=== PATIENT | female | born 1960 | race Caucasian/White ===

== ENCOUNTER 2017-06-18 12:10 | Outpatient (CLI) | payer MEDICARE, MEDICAID ==
[2017-06-18] MEDS ORDERED: SODIUM CHLORIDE IVPB SCH (13:00)
[2017-06-18] MEDS ORDERED: ADMIXTURE FEE IVPB SCH (13:00)
[2017-06-18] MEDS ORDERED: IRON DEXTRAN IVPB SCH (13:00)
[2017-06-18] MEDS ORDERED: Sodium Chloride 0.9% 20 ML ONE (13:22)
[2017-06-18 14:05] VITALS: BP 175/83; TEMP 98.4
== END 2017-06-18 17:35 | disposition home or self-care (01) ==
LOC: ONC/OP 12:10
PROVIDERS: ATTEND Internal Medicine Hematology & Oncology
DX: D50.8 Other iron deficiency anemias (principal)
CPT/HCPCS: 96365; 96366; A4216; J1750; J7050

== ENCOUNTER 2017-08-21 20:23 | Inpatient (IN) | payer MEDICARE, MEDICAID ==
[2017-08-21] MEDS ORDERED: Morphine 4 MG/ML VIAL ONE (21:33)
[2017-08-21] MEDS ORDERED: Ondansetron ODT 8 MG TAB ONE (21:41)
[2017-08-21] MEDS ORDERED: HYDROcodone/Acetaminophen 7.5/325 mg Tablet PO PRN (22:24)
[2017-08-21] MEDS ORDERED: Ondansetron ODT 4 MG TAB PO PRN (22:24)
[2017-08-21] MEDS ORDERED: HYDROcodone/Acetaminophen 5/325 mg Tablet PO PRN (22:24)
--- NOTE | 2017-08-21 23:29 | HP ---
CHIEF COMPLAINT: Ascites. HISTORY OF PRESENT ILLNESS: The patient is a 56-year-old female who was transferred here secondary t o abdominal distention and abdominal pain. The patient states that this started about 5 days ago and has gotten worse. She has noted that her abdominal girth has increased and she has had swelling in her lower extremities as well as some in her upper extremities. The patient denied any fevers or chi lls. She also denied any recent travels or any other symptoms. She denied any nausea, vomiting, lorna rrhea. She does have constipation, which has been intermittent and has been for about a month. She states that she was taking [id number] stool softener and initially attributed her constipation to iron. PAST MEDICAL HISTORY: Significant for rheumatoid arthritis and fibromyalgia. PAST SURGICAL HISTORY: The patient has had a prior total abdominal hysterectomy as well as 2 coronar y artery stents placed in 2013 and a prior . FAMILY HISTORY: The patient notes that her mom had recently and has had a history of bladder an d colon cancer. Her dad of lung cancer and he was a heavy smoker. SOCIAL HISTORY: Negative for tobacco or alcohol use. REVIEW OF SYSTEMS: Please see HPI. Rest of 14-point review of system is negative. LABORATORY AND X-RAY DATA: The patient's lab from transferring facility showed a sodium of 129, pota ssium 3.6, chloride 91, bicarbonate 26, BUN 10, creatinine 0.8, AST 31, ALT 16, total protein 8.8. C BC: White count was 9.3, H&H 13 and 40 with a platelet of 509. The patient's UA was unremarkable wi th nitrite and leukocyte esterase negative. BNP was 26. KUB showed nonspecific gas-bowel pattern. Preliminary CAT scan had shown some mildly distended colon air markings. PHYSICAL EXAMINATION: VITAL SIGNS: Blood pressure 161/94, pulse 106, respirations 18. The patient is satting 97% on room air, T-max is 98.3. GENERAL: The patient is awake, alert, oriented x3, in no acute distress. HEENT: Pupils equal, round, and reactive to light and accommodation. Extraocular muscles intact. T Ms are clear. Normal throat. NECK: No JVD or lymphadenopathy. HEART: Regular rate and rhythm. LUNGS: Clear to auscultation bilaterally. ABDOMEN: Positive bowel sounds. Soft, protuberant with distention and a positive fluid wave. EXTREMITIES: Positive 2 to 3+ edema in the lower extremities. NEUROLOGIC: Cranial nerves II-XII are grossly intact. Muscle strength is 5/5. No focal deficits no angelica. PSYCHIATRIC: The patient is cooperative and answering questions appropriately. ASSESSMENT AND PLAN: 1. Ascites, currently unknown cause. Certainly, cancer is in the differential. Diagnostic paracent esis is being performed in the ER with fluid being sent for cell count and cytology. Therapeutic tap to follow with IR in the next day or so. We will go ahead and obtain echocardiogram as well to look at heart function, as the patient does have 2 cardiac stents in the cardiac history. CEA and CA-125 have been ordered as cancer markers. 2. Rheumatoid arthritis. Continue with symptom management. CODE STATUS: The patient is a FULL CODE.
[2017-08-22 00:18] VITALS: BMI 36.8
[2017-08-22] MEDS: HYDROcodone/Acetaminophen 10/325 mg Tablet PO PRN ×4 (00:36→22:11)
[2017-08-22 01:22] LABS: BF Color Yellow; Clarity Hazy (Clear); RBC Background Count 0.001; Tube # 1
[2017-08-22 01:23] LABS: BF RBC Count - Manual 1136 /cumm; WBC/NonHematic-Auto 502 /cumm
[2017-08-22 03:58] LABS: BF Segmented Neutrophils 1 %; Cell Count Non Hematic 10 %; Lymphocytes 89 %
[2017-08-22 04:42] LABS: #Eosinphils 0.2 thou/uL (0.0-0.7); #Lymphocytes 2.6 thou/uL (1.20-3.40); #Monocytes 0.8 thou/uL (0.11-0.59); #Neutrophils 3.5 thou/uL (1.40-6.50); %Basophils 0.6 % (0.0-1.0); %Eosinophils 3.3 % (0.0-10.0); %Lymphocytes 35.9 % (21.0-51.0); %Monocytes 11.1 % (0.0-10.0); %Neutrophils 49.1 % (42.0-75.0); Hemoglobin 11.3 g/dL (12.0-16.0); Mean Corpuscular HGB CONC 31.4 g/dL (32.0-36.0); Mean Corpuscular Hemoglobin 24.2 pg (27.0-31.0); Mean Corpuscular Volume 77.2 fl (81.0-99.0); Mean Platelet Volume 8.1 fL (7.4-10.4); Platelet Count 487 thou/uL (130-400); RBC Distribution Width 17.6 % (11.5-14.5); Red Blood Cell (RBC) Count 4.67 mill/uL (4.20-5.40); White Blood Cell (WBC) Count 7.2 thou/uL (4.8-10.8)
[2017-08-22 04:56] LABS: Anion Gap 9 mmol/L (10-20); BUN (Urea Nitrogen) 8 mg/dL (9.8-20.1); Calc. Creatinine Clearance 143 mL/min (70-130); Calcium 8.9 mg/dL (7.8-10.44); Carbon Dioxide 28 mmol/L (22-29); Chloride 97 mmol/L (98-107); Estimated GFR-MDRD 82; Glucose 155 mg/dL (70-105); Potassium 3.7 mmol/L (3.5-5.1); Sodium 130 mmol/L (136-145)
[2017-08-22] MEDS: Enoxaparin Sodium 40 MG/0.4 ML SYRINGE SC SCH (10:17)
[2017-08-22] MEDS: Meloxicam 15 MG TAB PO SCH (10:17)
[2017-08-22] MEDS: Docusate 100 MG CAP PO SCH ×2 (10:17→20:27)
[2017-08-22] MEDS: Famotidine 20 MG TAB PO SCH ×2 (10:18→20:27)
[2017-08-22] MEDS: Multivit, Therapeutic 1 TAB PO SCH (10:18)
--- NOTE | 2017-08-22 10:30 | PDOC.PN ---
- Subjective Encounter Start Date: 08/22/17 Encounter Start Time: 10:28 Subjective: ascites, wants "it all out" - Objective Resuscitation Status: Resuscitation Status FULL:Full Resuscitation MAR Reviewed: Yes Vital Signs & Weight: Vital Signs (12 hours) Temp Pulse Resp BP BP Pulse Ox 08/22/17 08:29 98 F 102 H 20 157/93 H 98 08/22/17 03:48 98.1 F 99 16 137/79 92 L 08/21/17 23:50 98.3 F 110 H 20 93 L 08/21/17 23:45 98.3 F 110 H 20 136/87 93 L Weight Weight 235 lb 8 oz Result Diagrams: 08/22/17 04:26 08/22/17 04:26 Phys Exam - Physical Examination Neck: no JVD Respiratory: clear to auscultation bilateral Cardiovascular: RRR, no significant murmur Gastrointestinal: soft, non-tender, positive bowel sounds distended, pos fluid wave Musculoskeletal: edema present Dx/Plan (1) Ascites Code(s): R18.8 - OTHER ASCITES Status: Acute (2) Rheumatoid arteritis Code(s): I00 - RHEUMATIC FEVER WITHOUT HEART INVOLVEMENT Status: Acute (3) Hyponatremia Code(s): E87.1 - HYPO-OSMOLALITY AND HYPONATREMIA Status: Acute (4) CAD (coronary artery disease) Code(s): I25.10 - ATHSCL HEART DISEASE OF [place] CORONARY ARTERY W/O ANG PCTRS Status: Acute Qualifiers: Coronary Disease-Associated Artery/Lesion type: [place] artery [place] vs. transplanted heart: [place] heart Associated angina: without angina Qualified Code(s): I25.10 - Atherosclerotic heart disease of [place] coronary artery without angina pectoris (5) High serum carcinoembryonic antigen (CEA) Code(s): R79.89 - OTHER SPECIFIED ABNORMAL FINDINGS OF BLOOD CHEMISTRY Status : Acute - Plan on DMAs humira, viibryd -: obtain hepatic profile, PT/PTT -: consult oncology, GI -: await path on ascitic fluid * .
[2017-08-22 11:01] LABS: INR-International Normal Ratio 1.1; Prothrombin Time 14.6 SEC (12.0-14.7)
[2017-08-22 11:02] LABS: PTT 37.5 SEC (22.9-36.1)
[2017-08-22 11:11] LABS: ALT (SGPT) 11 U/L (8-55); AST (SGOT) 28 U/L (5-34); Albumin 2.9 g/dL (3.5-5.0); Alkaline Phosphatase 90 U/L (40-150); Bilirubin, Direct 0.2 mg/dL (0.1-0.3); Bilirubin, Total 0.3 mg/dL (0.2-1.2); Protein, Total 7.6 g/dL (6.0-8.3)
[2017-08-22 17:41] LABS: Uric Acid 6.8 mg/dL (2.6-6.0)
--- NOTE | 2017-08-22 18:07 | CON ---
DATE OF CONSULTATION: 08/22/2017 REASON FOR CONSULTATION: Possible malignant ascites. HISTORY OF PRESENT ILLNESS: Ms. Tinoco is a 56-year-old female who over the last 4 days has had increasing abdominal girth with abdominal pain, shortness of breath, and increased weakness. She was seen at the [facility] where she had a CT scan that showed omental caking, mod erate to large ascites with scalloping of the liver surface consistent with pseudomyxoma peritonei. She was transferred to this facility and underwent a therapeutic paracentesis. Cytology is currently pending. The patient has a history of iron deficient anemia and Leiva's esophagitis, rheumatoid a rthritis, and morbid obesity. She was told 5 or 6 months ago that she was anemic. She did see Dr. Zahra qiu and was given IV iron. She did not follow up. She takes Nexium for Leiva's esophagitis. H er last colonoscopy was last year by Dr. Flannery. When she saw Dr. Brito in June, she was instructed to have a GI workup, but again she did not follow up. Patient denies any chest pain. She does have occasional palpitations and shortness of breath. Lab this admission showed a CBC of 7.2 a nd hemoglobin 11.3. Her INR was normal at 1.1. A CEA was performed and was elevated at 1436. PAST MEDICAL HISTORY: 1. Leiva's esophagus. 2. Fibromyalgia. 3. Hypertension. 4. GERD. 5. Rheumatoid arthritis. 6. Type 2 diabetes. 7. Anemia. 8. Hyperlipidemia. 9. Coronary artery disease. 10. Liver disease diagnosed in 1998. PAST SURGICAL HISTORY: 1. Cardiac stent placement in 2013. 2. Total hysterectomy. 3. Tonsillectomy. 4. . ALLERGIES: No known drug allergies. HOME MEDICATIONS: 1. Humira 40 mg subcu. 2. Delmont p.r.n. 3. Mobic 15 mg daily. 4. Zanaflex p.r.n. 5. Viibryd 40 mg daily. FAMILY HISTORY: Father had leukemia, lung cancer. Mother had colon cancer. SOCIAL HISTORY: , former smoker. No alcohol, tobacco or illicit drug use. REVIEW OF SYSTEMS: Constitutional: Positive for fever, chills or night sweats. Eyes: No blurred o r double vision. ENT: No pain, hoarseness, sore throat, or dysphagia. Cardiovascular: No chest pa in, palpitations, syncope. Respiratory: Positive for shortness of breath, dyspnea on exertion. Gas trointestinal: No nausea, vomiting, diarrhea. Positive for abdominal pain and constipation. Genito urinary: No dysuria or hematuria. Musculoskeletal: No joint or back pain. Skin: No rash or pruri tus. Hematologic: Occasional rectal bleeding, no bruising or clotting. Neurologic: No weakness, h eadache, numbness, tingling or seizure activity. Psychiatric: No anxiety or depression. PHYSICAL EXAMINATION: VITAL SIGNS: Temperature is 98, pulse is 102, respiratory rate is 20, BP is 157/93. She is 98% on r oom air. GENERAL: This is an obese female in no acute distress. HEENT: Normocephalic, atraumatic. Pupils equal and reactive to light. NECK: Supple. CARDIOVASCULAR SYSTEM: Regular rate and rhythm. LUNGS: Clear. ABDOMEN: Distended, nontender. Bowel sounds are positive. EXTREMITIES: No clubbing, cyanosis or edema. SKIN: No rash. HEMATOLOGIC: No petechia or purpura. NEUROLOGICAL: Nonfocal. PSYCHIATRIC: The patient is alert and oriented and appropriate. PERTINENT LABORATORY DATA AND X-RAYS: Current WBCs are 7.2, hemoglobin 11.3, hematocrit 36.1, platel et count 487,000, 49% neutrophils, 36% lymphocytes. PT is 14.6, INR 1.1, PTT 37.5. Sodium is 130, p otassium 3.7, chloride 97, CO2 is 28, BUN is 8, creatinine 0.73, calcium is 8.9, total bilirubin 0.3, AST is 28, ALT is 11, alkaline phosphatase is 90. Albumin is 7.6. CEA is 1436. IMPRESSION: Abnormal CT scan with omental caking, moderate to large ascites and liver scalloping sug gestive of pseudomyxoma peritonei. PLAN: The patient has had a paracentesis. We will await final cytology for potential diagnosis and I note the GI has been consulted for their assistance. She does have a history of Leiva esophagus and some questionable GI bleeding. If diagnosis is unable to be made from cytology and GI has no fur ther plans, we will need a surgical consult for a biopsy of one of the areas of omental caking. Thank you for the consult. We will follow her closely.
[2017-08-22] MEDS ORDERED: GoLYTELY 4,000 ml Bottle PO SCH (19:15)
[2017-08-22] MEDS: tiZANidine HCl 4 MG TAB PO SCH (20:26)
--- NOTE | 2017-08-23 03:59 | CON ---
DATE OF CONSULTATION: 08/22/2017 REASON FOR CONSULTATION: New-onset ascites, possible malignant ascites. CONSULTING PHYSICIAN: ____ HISTORY OF PRESENT ILLNESS: Patient is a 56-year-old female with past medical history of rheumatoid arthritis, fibromyalgia, hypertension, GERD, diabetes, hyperlipidemia, coronary artery disease, and f atty liver, presenting with new-onset ascites. She says she was in her usual state of health. Per arthur zarate review, the patient was told approximately 5-6 months ago that she was anemic and told that she has also iron deficiency anemia. She ultimately underwent infusion of IV iron per the Hematology ser vice, but did not follow up after that particular IV infusion. Given her iron deficiency anemia, she was instructed to follow up as an outpatient with the GI service, but again this did not take place. Approximately 1.5 weeks ago, she started having significant increased abdominal distention and abdo alma pain associated with this distention as well as decreased appetite and the sensation of feeling full/bloating. This was also accompanied with increased nausea and vomiting x2 with nonbloody emesi s. She was also complaining of increased constipation approximately 1-1/2 weeks ago and was given Am itiza for correction of her constipation. After taking one dose of the Amitiza, it is when she had t he significant onset of her ascites. Currently states that she has generalized abdominal pain charac terized as pressure, aching type sensation with no clear alleviating or exacerbating factors. Lastly , she also does endorse a history of Leiva's esophagus and has been having complaints of dysphagia characterized as the sensation that food is getting stuck at the level of the sternal notch that has been occurring for the last 2-3 months. She states her last colonoscopy was approximately one year a go with Dr. Flannery with normal findings, but she cannot remember when her last upper endoscopy w as. REVIEW OF SYSTEMS: A 10-point category review of systems was obtained with all responses negative ex cept for the pertinent positives as listed in the HPI. PAST MEDICAL HISTORY: As per HPI. PAST SURGICAL HISTORY: Tonsillectomy, x1, total hysterectomy, and cardiac stent placement in 2013. FAMILY HISTORY: Mother with a history of colon cancer, father also diagnosed with leukemia, and lung cancer. SOCIAL HISTORY: Denies any tobacco, alcohol or illicit drug use. OUTPATIENT MEDICATIONS: Reviewed. ALLERGIES: No known drug allergies. PHYSICAL EXAMINATION: VITAL SIGNS: Temperature 97.8, pulse 96, blood pressure 138/77, respiratory rate 16, satting 100% on room air. GENERAL: The patient is sitting at bedside in no acute distress. Alert and oriented x4. NECK: Supple. No JVD noted. CARDIOVASCULAR: Regular rate and rhythm with no discernible murmurs, gallops or rubs. RESPIRATORY: Clear to auscultation bilaterally with no discernible wheezes or rales. ABDOMEN: Normoactive bowel sounds, soft, tenderness to palpation in all abdominal quadrants. Signif icant abdominal distention with positive shifting dullness. EXTREMITIES: No cyanosis, clubbing or edema. LABORATORY DATA: CBC with the white blood cell count 7.2, hemoglobin 11.3, hematocrit 36.1, platelet s 487. Chemistry with a sodium of 130, potassium 3.7, chloride 97, CO2 of 28, BUN 8, creatinine 0.73 , glucose 155, AST 28, ALT 11, alkaline phosphatase 90, total bilirubin 0.3, albumin 2.9. INR 1.1. Analysis of paracentesis fluid yielded 502 white blood cells with a 1% PMN predominance, total protei n of the ascitic fluid was 4.5, CEA 1436. IMAGING DATA: CT scan performed at an outside institution showed omental caking moderate to large as cites and liver scalloping suggestive of pseudomyxoma peritonei. ASSESSMENT AND PLAN: The patient is a 56-year-old female with past medical history of rheumatoid art hritis, fibromyalgia, hypertension, diabetes, hyperlipidemia, coronary artery disease, fatty liver di sease, Leiva's esophagus and GERD presenting with new-onset ascites. New-onset ascites. The patient has a history of iron deficiency anemia stretching back to [facility] 5-6 months ago for which she was being followed by the hematology service with IV iron infusion p erformed as an outpatient. She was instructed to follow up with the GI service for evaluation of thi s iron deficiency anemia, but this unfortunately did not take place, now presenting with significant new onset ascites and a CT scan showing omental caking concerning for malignant ascites and/or metast atic spread of a possible malignancy. Analysis of her ascitic fluid does not yield a diagnosis of SB P, but rather with a total protein greater than 2.5, is concerning for the presence of malignant asci moises, hypothyroidism, Budd-Chiari and/or cardiac failure (much less likely). At this time, ascitic fl uid albumin is pending that can be used to calculate a SAAG ratio to further differentiate origin of her ascites, although malignant ascites is the most likely explanation for the onset of these symptom s. With a CEA of over 1000, it is concerning for possible GI tract malignancy, although a colonoscop y performed within the last year makes the likelihood of a colonic malignancy less likely. With the history of dysphagia as well as a history of black stool x1 with IV iron and bright red blood per rec kem that was present only on the toilet paper, a GI malignancy cannot be ruled out at this time. RECOMMENDATIONS: 1. We would make the patient n.p.o. at midnight and plan for both EGD and colonoscopy tomorrow for e valuation of possible GI malignancy contributing to new-onset ascites. 2. We would continue to trend H&H and transfuse as necessary to maintain an H&H of 7/21. 3. We would obtain a right upper quadrant ultrasound with Doppler in order to evaluate the liver and possible Budd-Chiari type picture. 4. Follow up with final cytology of the ascitic fluid for possible determination of malignancy. 5. Agree with oncology services. Plan that if both the upper and lower endoscopy are negative, we w ould proceed with surgical concept for biopsies of one of the areas of omental caking. We will continue to follow. Please call with any questions.
[2017-08-23] MEDS: HYDROcodone/Acetaminophen 10/325 mg Tablet PO PRN ×4 (04:43→20:24)
--- NOTE | 2017-08-23 08:16 | ULT ---
HEPATIC DOPPLER ULTRASOUND: Date: 08/23/17 HISTORY: New onset ascites. Bloating. Nausea. COMPARISON: None. TECHNIQUE: Paez scale, color flow, and Doppler imaging with spectral waveform analysis performed with evaluation of the liver. FINDINGS: Proximal aorta measures 2.4 cm. The remainder of the aorta cannot be assessed due to bowel gas. Subop timal evaluation of the pancreas. Limited evaluation of hepatic parenchyma. There is increased echogenicity of the hepatic parenchyma. Right hepatic lobe measures 17.7 cm. Minimal nodularity of the hepatic margin may be present. There i s complex perihepatic fluid. There is dilatation of the right intrarenal collecting system. Right kidney measures 12.0 x 4.7 x 5.0 cm. No hydronephrosis in terms of left kidney. Left kidney measures 6.4 x 11.8 x 4.5 cm. Spleen measures 11.9 cm and may have granulomas. Within the lumen of the gallbladder, there is shadowing echogenic material suggesting gallstones. Gal lbladder wall is not thickened. No pericholecystic fluid. Negative Reid's sign. There is evidence of ascites in all four quadrants. Common bile duct diameter is 0.4 cm. HEPATIC DOPPLER: There is patency and appropriate directional flow in the main portal vein, right portal vein, left po rtal vein, left hepatic vein, middle hepatic vein, right hepatic vein, and hepatic artery. The spleni c vein and artery are also patent. IMPRESSION: 1. Normal hepatic Doppler. 2. There is evidence of ascites. There is complex perihepatic fluid. 3. Mild irregularity involving the hepatic parenchyma which may be due to hepatocellular disease. Be tter interrogation with liver mass protocol CT is recommended. 4. Sonographic evidence of cholelithiasis without evidence of cholecystitis. POS: [facility]
--- NOTE | 2017-08-23 11:02 | PDOC.PN ---
- Subjective Encounter Start Date: 08/23/17 Encounter Start Time: 11:00 Subjective: abd discomfort and swelling persist - Objective Resuscitation Status: Resuscitation Status FULL:Full Resuscitation MAR Reviewed: Yes Vital Signs & Weight: Vital Signs (12 hours) Temp Pulse Resp BP Pulse Ox 08/23/17 07:22 98.2 F 88 20 127/76 93 L 08/23/17 04:00 98.2 F 102 H 16 132/93 H 95 Weight Admit Weight 230 lb Weight 235 lb I&O: 08/22/17 08/23/17 08/24/17 06:59 06:59 06:59 Intake Total 1700 Balance 1700 Result Diagrams: 08/22/17 04:26 08/22/17 04:26 Phys Exam - Physical Examination Neck: no JVD Respiratory: clear to auscultation bilateral Cardiovascular: RRR, no significant murmur Gastrointestinal: soft, positive bowel sounds distended, ganeralized tenderness Musculoskeletal: edema present Dx/Plan (1) Ascites Code(s): R18.8 - OTHER ASCITES Status: Acute (2) Rheumatoid arteritis Code(s): 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 transplanted heart: [place] heart Associated angina: without angina Qualified Code(s): I25.10 - Atherosclerotic heart disease of [place] coronary artery without angina pectoris (5) High serum carcinoembryonic antigen (CEA) Code(s): R79.89 - OTHER SPECIFIED ABNORMAL FINDINGS OF BLOOD CHEMISTRY Status : Acute (6) Cholelithiases Code(s): K80.20 - CALCULUS OF GALLBLADDER W/O CHOLECYSTITIS W/O OBSTRUCTION Status: Acute - Plan cont analgesia -: EGD/ colonoscopy today -: need BX for Dx most likely, cytology of ascitic fluid still pending * .
[2017-08-23] MEDS ORDERED: Promethazine HCl 25 MG/ML VIAL SLOW IVP PRN (15:03)
[2017-08-23] MEDS ORDERED: Ondansetron HCl/PF 4 MG/2 ML Vial IVP PRN (15:03)
[2017-08-23] MEDS ORDERED: Promethazine HCl 25 MG/ML VIAL IM PRN (15:03)
[2017-08-23] MEDS: Enoxaparin Sodium 40 MG/0.4 ML SYRINGE SC SCH (16:10)
[2017-08-23] MEDS: VILAZODONE 40 MG PO SCH (16:10)
[2017-08-23] MEDS: Famotidine 20 MG TAB PO SCH ×2 (16:11→20:25)
[2017-08-23] MEDS: Docusate 100 MG CAP PO SCH ×2 (16:11→20:23)
[2017-08-23] MEDS: Multivit, Therapeutic 1 TAB PO SCH (16:11)
[2017-08-23] MEDS ORDERED: PROPOFOL 200 MG/20 ML VIAL ONE (16:32)
[2017-08-23] MEDS: tiZANidine HCl 4 MG TAB PO SCH (20:25)
[2017-08-23] MEDS: Meloxicam 15 MG TAB PO SCH (20:26)
[2017-08-24] MEDS: HYDROcodone/Acetaminophen 10/325 mg Tablet PO PRN ×3 (00:30→12:50)
[2017-08-24 07:44] VITALS: BP 138/81; TEMP 97.9
--- NOTE | 2017-08-24 08:27 | OP ---
PROCEDURES: Esophagogastroduodenoscopy and colonoscopy with biopsy. PREPROCEDURE DIAGNOSES: 1. Ascites with CT scan with concern from malignant change in the peritoneal cavity. 2. Microcytic anemia. POSTPROCEDURE DIAGNOSES: 1. Normal esophagogastroduodenoscopy. 2. Colon has a very poor prep; however, the mass was noted in the cecum. It is unclear if this come s in the appendiceal orifice. It was very firm, but they cannot be fully identified or visualized se condary to the amount of stool in the colon still, but biopsies were obtained and submitted to [facility]. RECOMMENDATIONS: 1. Await cytology, await pathology. 2. We will follow up on path results and follow from a distance, can be available for any diagnostic therapy and procedure as needed. ANESTHESIA: TIVA. PROCEDURE IN DETAIL: After the patient was informed of the risks, benefits, and possible complicatio ns of endoscopy including perforation, bleeding, reactions to medication and aspiration, informed con sent was obtained. The patient brought to endoscopy suite where she was sedated in gradual fashion. Once she was comfortable, a bite block was placed in incisural orifice. The endoscope was advanced through the esophagus, stomach and second and third portion of duodenum and it was removed with good visualization of mucosa. There was no mass, lesions or AV malformations identified. The esophagus a ppeared normal except for some mild reflux changes in the distal esophagus. The stomach was normal. There was mild fluid retention there, but no masses or tumors or abnormalities of the gastric wall. The duodenum was normal to the third portion. There was no scalloping of the duodenal folds. The r etroflexion views of the stomach were normal. The scope was removed. The patient was turned in the room and rectal exam was performed which revealed no abnormalities. The endoscope was advanced throu gh the anal canal to the cecum. The prep was very poor; however, a mass was found in the cecum just proximal to the ileocecal valve. The exact delineation of this could not be identified; however, was tulio it away, it appeared to be a tumor of sorts. Biopsies were taken and the tissue was very firm a nd hard. Adequate specimens were obtained and submitted to Pathology. The scope was then slowly rem jordana, although the prep was too poor to rule out other masses or small polyps or even small masses. Retroflexed views were normal. The scope was removed. The patient tolerated the procedure well with no complications.
[2017-08-24] MEDS: Enoxaparin Sodium 40 MG/0.4 ML SYRINGE SC SCH (09:33)
[2017-08-24] MEDS: VILAZODONE 40 MG PO SCH (09:34)
[2017-08-24] MEDS: Multivit, Therapeutic 1 TAB PO SCH (09:35)
[2017-08-24] MEDS: Famotidine 20 MG TAB PO SCH ×2 (09:35→09:40)
[2017-08-24] MEDS: Docusate 100 MG CAP PO SCH (09:35)
--- NOTE | 2017-08-24 10:14 | PDOC.PN ---
- Subjective Encounter Start Date: 08/24/17 Encounter Start Time: 10:11 Subjective: alert, mild abd discomfort - Objective Resuscitation Status: Resuscitation Status FULL:Full Resuscitation MAR Reviewed: Yes Vital Signs & Weight: Vital Signs (12 hours) Temp Pulse Resp BP BP BP Pulse Ox 08/24/17 07:43 97.9 F 83 20 138/81 98 08/24/17 04:00 98.1 F 74 16 120/77 95 08/23/17 23:40 98.5 F 71 16 92/57 L 93 L Weight Admit Weight 230 lb Weight 234 lb 12.677 oz I&O: 08/23/17 08/24/17 08/25/17 06:59 06:59 06:59 Intake Total 1700 500 Balance 1700 500 Result Diagrams: 08/22/17 04:26 08/22/17 04:26 Phys Exam - Physical Examination Neck: no JVD Respiratory: clear to auscultation bilateral Cardiovascular: RRR, no significant murmur Gastrointestinal: soft, non-tender, positive bowel sounds Musculoskeletal: edema present Dx/Plan (1) Ascites Code(s): R18.8 - OTHER ASCITES Status: Acute (2) Rheumatoid arteritis Code(s): 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 transplanted heart: [place] heart Associated angina: without angina Qualified Code(s): I25.10 - Atherosclerotic heart disease of [place] coronary artery without angina pectoris (5) High serum carcinoembryonic antigen (CEA) Code(s): R79.89 - OTHER SPECIFIED ABNORMAL FINDINGS OF BLOOD CHEMISTRY Status : Acute (6) Cholelithiases Code(s): K80.20 - CALCULUS OF GALLBLADDER W/O CHOLECYSTITIS W/O OBSTRUCTION Status: Acute - Plan cytology, bx appendix mass pending -: rpt from referring facility, 1/2 blood cultures pos E coli. 2/2 here 08/21 -: neg to date -: cont current tx, discuss with oncology * .
[2017-08-24] MEDS: Meloxicam 15 MG TAB PO SCH (10:19)
--- NOTE | 2017-08-24 14:11 | DIS ---
DATE OF ADMISSION: 08/21/2017 DATE OF DISCHARGE: 08/24/2017 PRIMARY CARE PROVIDER: Dr. Ulysses Mullins. DISCHARGE DIAGNOSES: Appendiceal carcinoma with peritoneal metastases, rheumatoid arthritis, coronar y artery disease, hyponatremia, gastroesophageal reflux disease. ALLERGIES: REMICADE, FENTANYL. PENDING AT TIME OF DISCHARGE: Blood cultures negative on blood and ascitic fluid at 48 hours. Cytol ogy on ascitic fluid. Path results on colon/appendix biopsy. HOSPITAL COURSE: Patient referred to [facility] ED from an [facility] for expanding abdominal girth and swelling in her extremities. She had blood cultures done at the [facility] facilities. The patient was found to have obvious ascites, a paracentesis was done. Her init ial laboratory, white count was 7.2 without a left shift, platelet count 487,000, hemoglobin 11.2, IN R 1.1. Chemistries: Sodium 130, potassium 3.7, chloride 97, CO2 of 28, BUN 8, creatinine 0.73, bloo d sugar 82. Glucose 155. Uric acid 6.8. LDH 294. Bilirubin, AST, ALT normal. CA-125 77. CEA 143 6. Peritoneal fluid was hazy yellow. RBCs 1136, white cell 502. The patient was seen in consultati on by Dr. Tony Jacinto and Dilma Ellis APRN for Dr. Isidra Brito. Abdominal ultrasound suggested g allstones with no evidence of cholelithiasis, ascites, mild irregularity of the hepatic parenchyma. A CT scan done in an outside source revealed peritoneal caking consistent with pseudomyxoma peritonei . The patient underwent on 08/23/2017 an EGD, which was normal and a colonoscopy which revealed a ma ss in the cecum. It was biopsied. Today, the patient seen by Dilma Ellis APRN for Dr. Isidra merritt. Patient's vital signs are stable. Abdomen is benign. Patient is desirous of going home pending her appointment, for follow up with her past specimens with Dr. Isidra Brito next week. I have discu ssed this with her. She is comfortable with it. I have asked her if she needed any new prescription s, she said no. She is being discharged for followup with Dr. Iisdra Brito next week. CODE STATUS: FULL. PROGNOSIS: Guarded.
--- NOTE | 2017-08-24 14:45 | PRG ---
DATE OF SERVICE: 08/24/2017 REASON FOR CONSULTATION: New onset ascites. SUBJECTIVE: The patient states that she is doing well with no acute events or problems overnight. S he continues to have generalized abdominal pain characterized as pressure, aching type sensation with no clear alleviating or exacerbating factors; however, it is improved when compared to previously du ring this admission. Otherwise, she denies any nausea, vomiting, fevers, chills, shortness of breath or GI bleeding. She underwent both upper and lower endoscopy yesterday with no immediate or postope rative complications with the findings of a cecal mass. OBJECTIVE: VITAL SIGNS: Temperature 97.9, pulse 83, blood pressure 138/81, respiratory rate 20, satting 98% on room air. GENERAL: The patient sitting in bed or sitting in a chair next to bedside in no acute distress. Aler t and oriented x4. CARDIOVASCULAR: Regular rate and rhythm with no discernible murmurs, gallops or rubs. RESPIRATORY: Clear to auscultation bilaterally with no discernible wheezes or rales. ABDOMEN: Normoactive bowel sounds, soft, tenderness to palpation in all abdominal quadrants with onl y deep palpation, significant abdominal distention with positive shifting dullness. EXTREMITIES: No cyanosis, clubbing or edema. LABORATORY DATA: No current data is available for review. IMAGING DATA: The patient underwent both EGD and colonoscopy on 08/23/2017 with the upper endoscopy being normal of any discernible abnormalities or pathology except for some mild reflux changes in the distal esophagus; however, with evaluation of the colonoscopy, the prep was considered poor, but rayna pite the poor prep, a mass was found in the cecum just proximal to the ileocecal valve and while the exact delineation of this mass could not be identified, it did appear to be a tumor of sorts. Multip le biopsies were taken for pathology evaluation. ASSESSMENT AND PLAN: The patient is a 56-year-old female with past medical history of rheumatoid art hritis, fibromyalgia, hypertension, diabetes, hyperlipidemia, coronary artery disease, fatty liver di sease, Leiva's esophagus, gastroesophageal reflux disease, and a family history of colon cancer pre senting with new onset ascites. New onset ascites. The patient has a history of iron deficiency anemia extending back approximately 5-6 months ago for which she had been evaluated by the hematology service with an IV iron infusion pe rformed as an outpatient. With continuation of this iron deficiency anemia, she had the acute onset of increased abdominal girth with imaging consistent with significant ascites. She was subsequently transferred to [facility] for evaluation. 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 Right upper quadrant ultrasound did not show any evidence of Budd-Chiari or hepatic pathology contributing to her ascites. With a significantly elevated CEA, ascites fluid consistent with peritoneal carcinomatosis and a large mass seen in the cecum, the most likely etiology is colon cancer contributing to her new onset ascites; however, biopsies taken yester day are still pending at this time and would wait until these biopsy results are back before planning any further treatment management. RECOMMENDATIONS: 1. Would follow up on biopsy results with further management guided by those results. 2. Would have patient follow up with the Oncology Service as an outpatient for reevaluation of the b iopsy results and further treatment possible chemotherapy given the probable metastatic nature of her disease. We will sign off at this time. Please call with any additional questions.
[2017-08-25] MEDS ORDERED: ESOMEPRAZOLE 40 MG PO SCH (09:00)
== END 2017-08-24 16:50 | disposition home or self-care (01) | DRG 375 ==
LOC: ERS 20:23 → ONC 21:29
PROVIDERS: ADMIT Hospitalist; ATTEND Hospitalist
PROC: 0W9G3ZX Drainage of Peritoneal Cavity, Percutaneous Approach, Diagnostic (ICD-10-PCS; 2017-08-21)
PROC: 0DBH8ZX Excision of Cecum, Via Natural or Artificial Opening Endoscopic, Diagnostic (ICD-10-PCS; principal; 2017-08-23)
PROC: 0DJ08ZZ Inspection of Upper Intestinal Tract, Via Natural or Artificial Opening Endoscopic (ICD-10-PCS; 2017-08-23)
DX: C18.1 Malignant neoplasm of appendix (principal); C78.6 Secondary malignant neoplasm of retroperitoneum and peritoneum; R18.8 Other ascites; E87.1 Hypo-osmolality and hyponatremia; E11.9 Type 2 diabetes mellitus without complications; D50.9 Iron deficiency anemia, unspecified; I10 Essential (primary) hypertension; M06.9 Rheumatoid arthritis, unspecified; M79.7 Fibromyalgia; K21.9 Gastro-esophageal reflux disease without esophagitis; E78.5 Hyperlipidemia, unspecified; I25.10 Atherosclerotic heart disease of native coronary artery without angina pectoris; K76.0 Fatty (change of) liver, not elsewhere classified; Z79.899 Other long term (current) drug therapy; Z95.5 Presence of coronary angioplasty implant and graft
CPT/HCPCS: 36415; 49083; 76705; 80048; 80076; 82042; 82378; 83615; 84157; 84550; 85025; 85060; 85610; 85730; 86304; 87040; 87070; 87205; 88112; 88305; 89051; 93306; 96374; 96375; A4216; J0696; J1650; J2270; J2704

== ENCOUNTER → 2017-08-27 | Day surgery (SDC) | payer MEDICARE, MEDICAID ==
[~2017-08-27] MED LIST: Lidocaine 1% PF 5 ML VIAL ONE
[2017-08-27 14:35] VITALS: TEMP 98.5
--- NOTE | 2017-08-27 15:39 | ULT ---
ULTRASOUND GUIDED PARACENTESIS: History: Ascites. Comparison: None. FINDINGS: Patient was brought to the ultrasound suite where all questions were answered. The right lower quadrant was prepped and draped in normal sterile fashion. Approximately 10 ml of Lidocaine was instilled into the superficial and deep soft tissues. Small derm atotomy was made after adequate anesthesia. Using a Yueh needle the peroneal space accessed. 5 L of fluid was removed. IMPRESSION: Successful ultrasound guided paracentesis. POS: [facility]
== END ==
LOC: ULT 12:32
PROVIDERS: ATTEND Internal Medicine Hematology & Oncology
PROC: 0W9G3ZX Drainage of Peritoneal Cavity, Percutaneous Approach, Diagnostic (ICD-10-PCS; principal; 2017-08-27)
PROC: BW40ZZZ Ultrasonography of Abdomen (ICD-10-PCS; 2017-08-27)
DX: R18.8 Other ascites (principal); M06.9 Rheumatoid arthritis, unspecified; M79.7 Fibromyalgia; Z91.013 Allergy to seafood; Z88.8 Allergy status to other drugs, medicaments and biological substances; Z95.5 Presence of coronary angioplasty implant and graft; Z90.710 Acquired absence of both cervix and uterus; Z98.890 Other specified postprocedural states
CPT/HCPCS: 49083; 88112; 88305; J2001

== ENCOUNTER 2017-09-04 10:06 | Outpatient (CLI) | payer MEDICARE, MEDICAID ==
--- NOTE | 2017-09-04 14:36 | PET ---
PET CT: HISTORY: 56-year-old female with recently diagnosed colon carcinoma (adenocarcinoma of the cecum). Exam reques angelica for initial staging. TECHNIQUE: PET scanning with CT attenuation correction was performed from the base of the brain through the prox imal thighs following the intravenous administration of 11.4 mCi F18-FDG in the left antecubital jones a. Imaging performed after an uptake interval of 44 minutes. FINDINGS: There are no previous exams for comparison. There is increased uptake in the cecal mass with a SUV of 4.3. Increased uptake is also seen in the peritoneum (lining) with SUV of 2.6. No mac hypermetabolism seen in the neck, chest, axilla, abdomen, pelvis, or inguinal regions. No hy permetabolic liver, adrenal, or skeletal lesions are seen. There is physiologic activity in the GI and tracts, and the visualized portions of the brain. The CT scan used for attenuation correction demonstrates no evidence of pleural or pericardial effusi ons. There is a large amount of ascites. 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 POS: [facility]
== END 2017-09-04 10:07 | disposition home or self-care (01) ==
LOC: PET 10:06
PROVIDERS: ATTEND Internal Medicine Hematology & Oncology
DX: C18.9 Malignant neoplasm of colon, unspecified (principal); C18.0 Malignant neoplasm of cecum; C78.6 Secondary malignant neoplasm of retroperitoneum and peritoneum; R18.8 Other ascites
CPT/HCPCS: 78815; A9552

== ENCOUNTER 2017-09-05 09:47 | Day surgery (SDC) | payer MEDICARE, MEDICAID ==
[2017-09-05] MEDS ORDERED: Sodium Chloride 0.9% 50 ML ONE (10:03)
[2017-09-05 10:07] VITALS: BP 149/83; TEMP 97.9
[2017-09-05] MEDS ORDERED: ONDANSETRON IVP SCH (10:15)
[2017-09-05] MEDS ORDERED: WATER IVPB SCH ×2 (10:15)
[2017-09-05] MEDS ORDERED: FLUOROURACIL IVPB SCH (10:15)
[2017-09-05] MEDS ORDERED: DEXTROSE 5% IVPB SCH ×2 (10:15)
[2017-09-05] MEDS ORDERED: Leucovorin Calcium 50 MG in Dextrose 5% in Water 50 ML IVPB SCH (10:15)
[2017-09-05] MEDS ORDERED: OXALIPLATIN IVPB SCH (10:15)
[2017-09-05] MEDS ORDERED: DEXAMETHASONE SOD PHOSPHATE IVP SCH (10:15)
[2017-09-05] MEDS ORDERED: [UNRECOGNIZED DRUG - OTHER] IVP SCH (10:15)
[2017-09-05] MEDS ORDERED: DEXTROSE 5% IVP SCH (10:15)
[2017-09-05] MEDS ORDERED: Admixture Fee 1 EACH in Dextrose 5% in Water 10 ML IV SCH (11:45)
== END 2017-09-05 15:25 | disposition home or self-care (01) ==
LOC: ONC/OP 09:47
PROVIDERS: ATTEND Internal Medicine Hematology & Oncology
DX: Z51.11 Encounter for antineoplastic chemotherapy (principal); C18.2 Malignant neoplasm of ascending colon; D50.8 Other iron deficiency anemias; K22.70 Barrett's esophagus without dysplasia; K21.9 Gastro-esophageal reflux disease without esophagitis; E11.9 Type 2 diabetes mellitus without complications; E78.5 Hyperlipidemia, unspecified; I25.10 Atherosclerotic heart disease of native coronary artery without angina pectoris; M06.9 Rheumatoid arthritis, unspecified; E66.01 Morbid (severe) obesity due to excess calories; Z68.38 Body mass index [BMI] 38.0-38.9, adult; Z87.891 Personal history of nicotine dependence; Z79.1 Long term (current) use of non-steroidal anti-inflammatories (NSAID); Z79.899 Other long term (current) drug therapy; Z91.013 Allergy to seafood; Z88.8 Allergy status to other drugs, medicaments and biological substances
CPT/HCPCS: 96367; 96413; 96415; 96417; A4216; J0640; J1642; J2405; J7070; J9190; J9263

== ENCOUNTER 2017-09-18 10:20 | Day surgery (SDC) | payer MEDICARE, MEDICAID ==
[2017-09-18] MEDS ORDERED: Sodium Chloride 0.9% 40 ML ONE (11:03)
[2017-09-18] MEDS ORDERED: Dexamethasone 10 MG/ML VIAL SLOW IVP SCH (11:30)
[2017-09-18] MEDS ORDERED: FLUOROURACIL IVPB SCH (11:30)
[2017-09-18] MEDS ORDERED: DEXTROSE 5% IVPB SCH ×2 (11:30)
[2017-09-18] MEDS ORDERED: OXALIPLATIN IVPB SCH (11:30)
[2017-09-18] MEDS ORDERED: PALONOSETRON HCL 0.05 MG/ML 5 ML VIAL IVP SCH (11:30)
[2017-09-18] MEDS ORDERED: WATER IVPB SCH ×2 (11:30)
[2017-09-18] MEDS ORDERED: Leucovorin Calcium 50 MG in Dextrose 5% in Water 50 ML IVPB SCH (11:30)
[2017-09-18] MEDS ORDERED: Admixture Fee 1 EACH in Dextrose 5% in Water 10 ML IV SCH (11:45)
[2017-09-18] MEDS ORDERED: SODIUM CHLORIDE 0.9% IVPB SCH (11:45)
[2017-09-18] MEDS ORDERED: BEVACIZUMAB IVPB SCH (11:45)
[2017-09-18 12:00] VITALS: BP 147/87; TEMP 98.8
--- NOTE | 2017-09-18 13:50 | ULT ---
ULTRASOUND GUIDED PARACENTESIS: Date: 09/18/17 INDICATION: Ascites. TECHNIQUE/FINDINGS: Informed consent was obtained. Preprocedure ultrasound images demonstrated a prominent amount of flui d within the abdominal cavity. Site overlying the right lower quadrant was marked. Site was prepped a nd draped in the usual sterile fashion. Buffered 1% lidocaine was administered to overlying subcutane ous tissues. Under ultrasound guidance, a 5 [place] [employer] catheter was guided down into the collection in the right lower quadrant. After removal of approximately 1 liter of fluid, the catheter displaced. The catheter was replaced with a Safe-Stick paracentesis catheter. Patient had 8 liters of fluid rem jordana from the abdominal cavity. IMPRESSION: Successful ultrasound guided paracentesis. POS: [facility]
== END 2017-09-18 17:34 | disposition home or self-care (01) ==
LOC: ONC/OP 10:20
PROVIDERS: ATTEND Internal Medicine Hematology & Oncology
PROC: 0W9G3ZZ Drainage of Peritoneal Cavity, Percutaneous Approach (ICD-10-PCS; principal; 2017-09-18)
PROC: BW40ZZZ Ultrasonography of Abdomen (ICD-10-PCS; 2017-09-18)
DX: R18.8 Other ascites (principal); K21.9 Gastro-esophageal reflux disease without esophagitis; K22.70 Barrett's esophagus without dysplasia; I10 Essential (primary) hypertension; M06.9 Rheumatoid arthritis, unspecified; E11.9 Type 2 diabetes mellitus without complications; D64.9 Anemia, unspecified; E78.5 Hyperlipidemia, unspecified; I25.10 Atherosclerotic heart disease of native coronary artery without angina pectoris; Z95.5 Presence of coronary angioplasty implant and graft; Z87.891 Personal history of nicotine dependence; Z91.013 Allergy to seafood; Z79.899 Other long term (current) drug therapy
CPT/HCPCS: 49083; 96367; 96375; 96413; 96415; 96416; 96417; 99211; A4216; G0463; J0640; J7050; J7070; J9035; J9190; J9263

== ENCOUNTER → 2017-09-18 | Day surgery (SDC) | payer MEDICARE, MEDICAID ==
[~2017-09-18] MED LIST changes: +Admixture Fee 1 EACH in Dextrose 5% in Water 10 ML IV SCH; +BEVACIZUMAB IVPB SCH; +DEXTROSE 5% IVPB SCH; +Dexamethasone 10 MG/ML VIAL SLOW IVP SCH; +FLUOROURACIL IVPB SCH; +Leucovorin Calcium 50 MG in Dextrose 5% in Water 50 ML IVPB SCH; -Lidocaine 1% PF 5 ML VIAL ONE; +OXALIPLATIN IVPB SCH; +PALONOSETRON HCL 0.05 MG/ML 5 ML VIAL IVP SCH; +SODIUM CHLORIDE 0.9% IVPB SCH; +WATER IVPB SCH
== END ==
LOC: ONC/OP 11:00
PROVIDERS: ATTEND Internal Medicine Hematology & Oncology
DX: Z51.11 Encounter for antineoplastic chemotherapy (principal); C18.2 Malignant neoplasm of ascending colon; E66.01 Morbid (severe) obesity due to excess calories; I10 Essential (primary) hypertension; K21.9 Gastro-esophageal reflux disease without esophagitis; M06.9 Rheumatoid arthritis, unspecified; E11.9 Type 2 diabetes mellitus without complications; E78.5 Hyperlipidemia, unspecified; I25.2 Old myocardial infarction; I25.10 Atherosclerotic heart disease of native coronary artery without angina pectoris; Z87.891 Personal history of nicotine dependence; Z88.8 Allergy status to other drugs, medicaments and biological substances; Z91.013 Allergy to seafood; Z79.899 Other long term (current) drug therapy
CPT/HCPCS: J0640; J1100; J2469; J7050; J7070; J9035; J9190; J9263

== ENCOUNTER 2017-10-02 10:00 | Day surgery (SDC) | payer MEDICARE, MEDICAID ==
[2017-10-02] MEDS ORDERED: Sodium Chloride 0.9% 50 ML ONE (10:09)
[2017-10-02] MEDS ORDERED: Ondansetron HCl/PF 4 MG/2 ML Vial IVP SCH (10:30)
[2017-10-02] MEDS ORDERED: PALONOSETRON HCL 0.05 MG/ML 5 ML VIAL IVP SCH (10:30)
[2017-10-02] MEDS ORDERED: Leucovorin Calcium 50 MG in Dextrose 5% in Water 50 ML IVPB SCH (10:30)
[2017-10-02] MEDS ORDERED: Dexamethasone 10 MG/ML VIAL SLOW IVP SCH (10:30)
[2017-10-02] MEDS ORDERED: BEVACIZUMAB IVPB SCH ×2 (10:45)
[2017-10-02] MEDS ORDERED: OXALIPLATIN IVPB SCH (10:45)
[2017-10-02] MEDS ORDERED: WATER IVPB SCH ×2 (10:45)
[2017-10-02] MEDS ORDERED: SODIUM CHLORIDE 0.9% IVPB SCH ×2 (10:45)
[2017-10-02] MEDS ORDERED: Dexamethasone 10 MG, Ondansetron 2MG/ML MDV 10 MG in Sodium Chloride 0.9% 50 ML IVPB SCH (10:45)
[2017-10-02] MEDS ORDERED: Admixture Fee 1 EACH in Dextrose 5% in Water 10 ML IV SCH (10:45)
[2017-10-02] MEDS ORDERED: DEXTROSE 5% IVPB SCH ×2 (10:45)
[2017-10-02] MEDS ORDERED: FLUOROURACIL IVPB SCH (10:45)
[2017-10-02 11:13] LABS: ALT (SGPT) 8 U/L (8-55); AST (SGOT) 25 U/L (5-34); Albumin 2.7 g/dL (3.5-5.0); Alkaline Phosphatase 107 U/L (40-150); Anion Gap 13 mmol/L (10-20); BUN (Urea Nitrogen) 6 mg/dL (9.8-20.1); Bilirubin, Total 0.5 mg/dL (0.2-1.2); Calc. Creatinine Clearance 0 mL/min (70-130); Calcium 8.4 mg/dL (7.8-10.44); Carbon Dioxide 29 mmol/L (22-29); Chloride 97 mmol/L (98-107); Estimated GFR-MDRD Greater than 90; Globulin 3.7 g/dL (2.4-3.5); Glucose 130 mg/dL (70-105); LDH 207 U/L (125-220); Potassium 3.5 mmol/L (3.5-5.1); Protein, Total 6.4 g/dL (6.0-8.3); Sodium 135 mmol/L (136-145); Uric Acid 4.6 mg/dL (2.6-6.0)
[2017-10-02 11:17] VITALS: BP 171/91; TEMP 98.5
== END 2017-10-02 16:40 | disposition home or self-care (01) ==
LOC: ONC/OP 10:00
PROVIDERS: ATTEND Internal Medicine Hematology & Oncology
DX: Z51.11 Encounter for antineoplastic chemotherapy (principal); C18.2 Malignant neoplasm of ascending colon; D50.8 Other iron deficiency anemias; M79.7 Fibromyalgia; I10 Essential (primary) hypertension; K21.9 Gastro-esophageal reflux disease without esophagitis; M06.9 Rheumatoid arthritis, unspecified; E11.9 Type 2 diabetes mellitus without complications; E78.5 Hyperlipidemia, unspecified; I25.10 Atherosclerotic heart disease of native coronary artery without angina pectoris; K76.9 Liver disease, unspecified; E66.01 Morbid (severe) obesity due to excess calories; Z68.41 Body mass index [BMI] 40.0-44.9, adult; Z91.013 Allergy to seafood; Z91.018 Allergy to other foods; Z79.899 Other long term (current) drug therapy; Z95.5 Presence of coronary angioplasty implant and graft; Z98.890 Other specified postprocedural states; Z87.891 Personal history of nicotine dependence
CPT/HCPCS: 80053; 82378; 83615; 84550; 96367; 96375; 96413; 96415; 96416; 96417; A4216; J0640; J1100; J1642; J2405; J2469; J7050; J7070; J9035; J9190; J9263

== ENCOUNTER 2017-10-16 09:24 | Day surgery (SDC) | payer MEDICARE, MEDICAID ==
[2017-10-16] MEDS ORDERED: DEXTROSE 5% IVPB SCH ×2 (09:45)
[2017-10-16] MEDS ORDERED: FLUOROURACIL IVPB SCH (09:45)
[2017-10-16] MEDS ORDERED: PALONOSETRON HCL 0.05 MG/ML 5 ML VIAL IVP SCH (09:45)
[2017-10-16] MEDS ORDERED: ONDANSETRON IVP SCH (09:45)
[2017-10-16] MEDS ORDERED: WATER IVPB SCH ×2 (09:45)
[2017-10-16] MEDS ORDERED: DEXAMETHASONE IVP SCH (09:45)
[2017-10-16] MEDS ORDERED: SODIUM CHLORIDE 0.9% IVP SCH (09:45)
[2017-10-16] MEDS ORDERED: OXALIPLATIN IVPB SCH (09:45)
[2017-10-16] MEDS ORDERED: Leucovorin Calcium 50 MG in Dextrose 5% in Water 50 ML IVPB SCH (09:45)
[2017-10-16] MEDS ORDERED: Sodium Chloride 0.9% 30 ML ONE (09:49)
[2017-10-16] MEDS ORDERED: Ondansetron 2MG/ML MDV 10 MG, Dexamethasone 10 MG in Sodium Chloride 0.9% 50 ML IVP SCH (10:00)
[2017-10-16] MEDS ORDERED: Bevacizumab 500 MG in Sodium Chloride 0.9% 80 ML IVPB SCH (10:00)
[2017-10-16 10:20] VITALS: BP 149/96; TEMP 98.4
[2017-10-16] MEDS ORDERED: Admixture Fee 1 EACH in Dextrose 5% in Water 10 ML IV SCH (10:45)
== END 2017-10-16 14:36 | disposition home or self-care (01) ==
LOC: ONC/OP 09:24
PROVIDERS: ATTEND Internal Medicine Hematology & Oncology
DX: Z51.11 Encounter for antineoplastic chemotherapy (principal); C18.2 Malignant neoplasm of ascending colon; D50.8 Other iron deficiency anemias; E11.9 Type 2 diabetes mellitus without complications; E78.5 Hyperlipidemia, unspecified; I25.10 Atherosclerotic heart disease of native coronary artery without angina pectoris; I25.2 Old myocardial infarction; M06.9 Rheumatoid arthritis, unspecified; I10 Essential (primary) hypertension; Z91.013 Allergy to seafood; Z88.8 Allergy status to other drugs, medicaments and biological substances; Z79.899 Other long term (current) drug therapy
CPT/HCPCS: 36415; 80053; 82248; 83615; 84100; 84550; 96367; 96375; 96413; 96415; 96416; 96417; A4216; J0640; J1100; J1642; J2405; J2469; J7050; J7070; J9035; J9190; J9263

== ENCOUNTER → 2017-10-19 | Day surgery (SDC) | payer MEDICARE, MEDICAID ==
[~2017-10-19] MED LIST changes: -Admixture Fee 1 EACH in Dextrose 5% in Water 10 ML IV SCH; -BEVACIZUMAB IVPB SCH; -DEXTROSE 5% IVPB SCH; -Dexamethasone 10 MG/ML VIAL SLOW IVP SCH; -FLUOROURACIL IVPB SCH; -Leucovorin Calcium 50 MG in Dextrose 5% in Water 50 ML IVPB SCH; +Lidocaine 1% PF 5 ML VIAL ONE; -OXALIPLATIN IVPB SCH; -PALONOSETRON HCL 0.05 MG/ML 5 ML VIAL IVP SCH; -SODIUM CHLORIDE 0.9% IVPB SCH; -WATER IVPB SCH
[2017-10-19 12:11] LABS: Hemoglobin 11.4 g/dL (12.0-16.0); Mean Corpuscular HGB CONC 31.4 g/dL (32.0-36.0); Mean Corpuscular Hemoglobin 24.3 pg (27.0-31.0); Mean Corpuscular Volume 77.4 fl (81.0-99.0); Mean Platelet Volume 7.3 fL (7.4-10.4); Platelet Count 385 thou/uL (130-400); RBC Distribution Width 17.4 % (11.5-14.5); White Blood Cell (WBC) Count 2.1 thou/uL (4.8-10.8)
[2017-10-19 12:15] LABS: PTT 31.4 SEC (22.9-36.1); Prothrombin Time 13.4 SEC (12.0-14.7)
[2017-10-19 12:27] LABS: Band 2 % (5-11); Eosinophils 8 % (0-10); Lymphocytes 54 % (21-51); MDiff Complete? YES; Microcytosis SLIGHT = 6-15 cells (100X) (0-5/hpf); Monocytes 2 % (0-10); Neutrophil 32 % (42-75); PLT Morphology Comment Appears Adequate; Polychromasia SLIGHT = 2-3 cells (100X) (0-2/hpf)
--- NOTE | 2017-10-19 15:50 | ULT ---
ULTRASOUND GUIDED PARACENTESIS 10/19/17 INDICATION: Malignant ascites. TECHNIQUE: Informed consent was obtained. Preprocedural ultrasound demonstrated a prominent amount of fluid with in the abdominal cavity. Site overlying the right lower quadrant was marked. The site was prepped and draped in the usual sterile fashion. Under ultrasound guidance, a safe stick paracentesis catheter w as guided down into the large collection in the right lower quadrant. This did not provided adequate drainage and had to be replaced by a Yueh catheter which also proved to be insufficient in draining. This was followed up by replacement of a safe stick paracentesis catheter which removed 7 liters of p eritoneal fluid. The peritoneal fluid was slightly turbid in appearance and slightly tenacious. The p atient reported that she has been having increased paraumbilical pain over the last few weeks. The pa tient was not actively febrile. Patient did not have tenderness to palpation on exam. For conservativ e measure, we will send off one liter of the fluid for further evaluation of aerobic, anaerobic cultu res and gram stain. IMPRESSION: Successful ultrasound guided paracentesis removal of 7 liters of fluid. One liter of fluid was sent t o the laboratory for analysis for aerobic, anaerobic cultures with gram stain. POS: [facility]
[2017-10-19 16:31] LABS: BF Color Yellow; Body Fluid Source Ascites Body Fluid; Clarity Hazy (Clear); Tube # EDTA
[2017-10-19 16:32] LABS: BF RBC Count - Manual 645 /cumm; WBC/NonHematic-Auto 233 /cumm
[2017-10-19 16:52] LABS: BF Segmented Neutrophils 4 %; Cell Count Non Hematic 67 %; Eosinophils 2 %; Lymphocytes 26 %
== END ==
LOC: ULT 11:21
PROVIDERS: ATTEND Internal Medicine Hematology & Oncology
PROC: 0W9G3ZZ Drainage of Peritoneal Cavity, Percutaneous Approach (ICD-10-PCS; principal; 2017-10-19)
DX: R18.0 Malignant ascites (principal); C18.2 Malignant neoplasm of ascending colon
CPT/HCPCS: 36415; 49083; 85025; 85060; 85610; 85730; 87070; 87077; 87205; 89051; J2001

== ENCOUNTER 2017-10-30 10:03 | Day surgery (SDC) | payer MEDICARE, MEDICAID ==
[2017-10-30] MEDS ORDERED: Ondansetron HCl/PF 4 MG/2 ML Vial IVP SCH (10:15)
[2017-10-30] MEDS ORDERED: Leucovorin Calcium 50 MG in Dextrose 5% in Water 50 ML IVPB SCH (10:15)
[2017-10-30] MEDS ORDERED: Dexamethasone 10 MG/ML VIAL SLOW IVP SCH (10:15)
[2017-10-30] MEDS ORDERED: OXALIPLATIN IVPB SCH (10:15)
[2017-10-30] MEDS ORDERED: DEXTROSE 5% IVPB SCH ×2 (10:15→10:30)
[2017-10-30] MEDS ORDERED: PALONOSETRON HCL 0.05 MG/ML 5 ML VIAL IVP SCH (10:15)
[2017-10-30] MEDS ORDERED: WATER IVPB SCH ×2 (10:15→10:30)
[2017-10-30] MEDS ORDERED: Dexamethasone 10 MG, Ondansetron 2MG/ML MDV 10 MG in Sodium Chloride 0.9% 50 ML IVPB SCH (10:30)
[2017-10-30] MEDS ORDERED: FLUOROURACIL IVPB SCH (10:30)
[2017-10-30 10:46] VITALS: BP 163/89; TEMP 98.3
[2017-10-30] MEDS ORDERED: Sodium Chloride 0.9% 40 ML ONE (10:53)
== END 2017-10-30 16:59 | disposition home or self-care (01) ==
LOC: ONC/OP 10:03
PROVIDERS: ATTEND Internal Medicine Hematology & Oncology
DX: Z51.11 Encounter for antineoplastic chemotherapy (principal); C18.2 Malignant neoplasm of ascending colon; R18.8 Other ascites; K22.70 Barrett's esophagus without dysplasia; E66.01 Morbid (severe) obesity due to excess calories; D50.8 Other iron deficiency anemias; K21.9 Gastro-esophageal reflux disease without esophagitis; I10 Essential (primary) hypertension; E11.9 Type 2 diabetes mellitus without complications; I25.10 Atherosclerotic heart disease of native coronary artery without angina pectoris; E78.5 Hyperlipidemia, unspecified; Z87.891 Personal history of nicotine dependence; Z88.8 Allergy status to other drugs, medicaments and biological substances; Z68.32 Body mass index [BMI] 32.0-32.9, adult
CPT/HCPCS: 96367; 96413; 96415; 96416; 96417; A4216; J0640; J1100; J2405; J2469; J7050; J7070; J9190; J9263

== ENCOUNTER 2017-11-13 09:46 | Day surgery (SDC) | payer MEDICARE, MEDICAID ==
[2017-11-13] MEDS ORDERED: Sodium Chloride 0.9% 30 ML ONE (09:53)
[2017-11-13] MEDS ORDERED: OXALIPLATIN IVPB SCH (10:00)
[2017-11-13] MEDS ORDERED: DEXTROSE 5% IVPB SCH ×2 (10:00→10:15)
[2017-11-13] MEDS ORDERED: PALONOSETRON HCL 0.05 MG/ML 5 ML VIAL IVP SCH (10:00)
[2017-11-13] MEDS ORDERED: Dexamethasone 10 MG, Ondansetron 2MG/ML MDV 10 MG in Sodium Chloride 0.9% 50 ML IVPB SCH (10:00)
[2017-11-13] MEDS ORDERED: WATER IVPB SCH ×2 (10:00→10:15)
[2017-11-13] MEDS ORDERED: Leucovorin Calcium 50 MG in Dextrose 5% in Water 50 ML IVPB SCH (10:00)
[2017-11-13 10:04] VITALS: BP 161/86; TEMP 98.4
[2017-11-13] MEDS ORDERED: BEVACIZUMAB IVPB SCH (10:15)
[2017-11-13] MEDS ORDERED: FLUOROURACIL IVPB SCH (10:15)
[2017-11-13] MEDS ORDERED: SODIUM CHLORIDE 0.9% IVPB SCH (10:15)
[2017-11-13] MEDS ORDERED: diphenhydrAMINE 50 MG/ML VIAL IVP SCH (13:45)
[2017-11-13] MEDS ORDERED: Famotidine 20 MG TAB PO SCH (13:45)
== END 2017-11-13 14:57 | disposition home or self-care (01) ==
LOC: ONC/OP 09:46
PROVIDERS: ATTEND Internal Medicine Hematology & Oncology
DX: Z51.11 Encounter for antineoplastic chemotherapy (principal); C18.2 Malignant neoplasm of ascending colon; D50.8 Other iron deficiency anemias; I10 Essential (primary) hypertension; K22.70 Barrett's esophagus without dysplasia; E66.01 Morbid (severe) obesity due to excess calories; K21.9 Gastro-esophageal reflux disease without esophagitis; M06.9 Rheumatoid arthritis, unspecified; E11.9 Type 2 diabetes mellitus without complications; E78.5 Hyperlipidemia, unspecified; I25.10 Atherosclerotic heart disease of native coronary artery without angina pectoris; Z88.1 Allergy status to other antibiotic agents; Z88.8 Allergy status to other drugs, medicaments and biological substances; Z87.891 Personal history of nicotine dependence; Z68.31 Body mass index [BMI] 31.0-31.9, adult
CPT/HCPCS: 96367; 96375; 96413; 96415; 96416; 96417; A4216; J0640; J1100; J1200; J1642; J2405; J2469; J7050; J7070; J9035; J9190; J9263

== ENCOUNTER 2017-11-27 10:16 | Day surgery (SDC) | payer MEDICARE, MEDICAID ==
[2017-11-27] MEDS ORDERED: Sodium Chloride 0.9% 30 ML ONE (10:47)
[2017-11-27] MEDS ORDERED: Palonosetron HCl 0.25 MG in Sodium Chloride 0.9% 50 ML IVPB SCH (11:00)
[2017-11-27] MEDS ORDERED: Dexamethasone 10 MG, Ondansetron 2MG/ML MDV 10 MG in Sodium Chloride 0.9% 50 ML IVPB SCH (11:00)
[2017-11-27] MEDS ORDERED: Leucovorin Calcium 50 MG in Dextrose 5% in Water 50 ML IVPB SCH (11:30)
[2017-11-27] MEDS ORDERED: SODIUM CHLORIDE 0.9% IVPB SCH (11:30)
[2017-11-27] MEDS ORDERED: WATER IVPB SCH ×2 (11:30)
[2017-11-27] MEDS ORDERED: BEVACIZUMAB IVPB SCH (11:30)
[2017-11-27] MEDS ORDERED: DEXTROSE 5% IVPB SCH ×2 (11:30)
[2017-11-27] MEDS ORDERED: FLUOROURACIL IVPB SCH (11:30)
[2017-11-27] MEDS ORDERED: OXALIPLATIN IVPB SCH (11:30)
[2017-11-27 12:52] VITALS: BP 139/79; TEMP 98.1
[2017-11-27] MEDS ORDERED: Famotidine 20 MG TAB PO SCH (13:45)
[2017-11-27] MEDS ORDERED: diphenhydrAMINE 50 MG/ML VIAL IVP SCH (13:45)
[2017-11-27] MEDS ORDERED: diphenhydrAMINE 50 MG/ML VIAL ONE (13:45)
== END 2017-11-27 16:30 | disposition home or self-care (01) ==
LOC: ONC/OP 10:16
PROVIDERS: ATTEND Internal Medicine Hematology & Oncology
DX: Z51.11 Encounter for antineoplastic chemotherapy (principal); C18.0 Malignant neoplasm of cecum; D50.8 Other iron deficiency anemias; C78.5 Secondary malignant neoplasm of large intestine and rectum; R18.8 Other ascites; K22.70 Barrett's esophagus without dysplasia; E66.01 Morbid (severe) obesity due to excess calories; I10 Essential (primary) hypertension; M79.7 Fibromyalgia; K21.9 Gastro-esophageal reflux disease without esophagitis; M06.9 Rheumatoid arthritis, unspecified; E11.9 Type 2 diabetes mellitus without complications; I25.10 Atherosclerotic heart disease of native coronary artery without angina pectoris; E78.5 Hyperlipidemia, unspecified; Z90.710 Acquired absence of both cervix and uterus; Z90.89 Acquired absence of other organs; Z88.8 Allergy status to other drugs, medicaments and biological substances; Z88.5 Allergy status to narcotic agent; Z87.891 Personal history of nicotine dependence; Z68.31 Body mass index [BMI] 31.0-31.9, adult
CPT/HCPCS: 36415; 80053; 82378; 96367; 96375; 96413; 96415; 96416; 96417; A4216; J0640; J1100; J1200; J2405; J2469; J7050; J7070; J9035; J9190; J9263

== ENCOUNTER 2017-12-11 12:03 | Day surgery (SDC) | payer MEDICARE, MEDICAID ==
[2017-12-11] MEDS ORDERED: Ondansetron 2MG/ML MDV 10 MG, Dexamethasone 10 MG in Sodium Chloride 0.9% 50 ML IVPB SCH (12:30)
[2017-12-11] MEDS ORDERED: OXALIPLATIN IVPB SCH (12:30)
[2017-12-11] MEDS ORDERED: WATER IVPB SCH ×2 (12:30)
[2017-12-11] MEDS ORDERED: DEXTROSE 5% IVPB SCH ×2 (12:30)
[2017-12-11] MEDS ORDERED: BEVACIZUMAB IVPB SCH (12:30)
[2017-12-11] MEDS ORDERED: PALONOSETRON HCL 0.05 MG/ML 5 ML VIAL IVP SCH (12:30)
[2017-12-11] MEDS ORDERED: Leucovorin Calcium 50 MG in Dextrose 5% in Water 50 ML IVPB SCH (12:30)
[2017-12-11] MEDS ORDERED: Famotidine/PF 20 mg/2ml Vial SLOW IVP SCH (12:30)
[2017-12-11] MEDS ORDERED: diphenhydrAMINE 50 MG/ML VIAL IVP SCH ×2 (12:30→14:30)
[2017-12-11] MEDS ORDERED: SODIUM CHLORIDE 0.9% IVPB SCH (12:30)
[2017-12-11] MEDS ORDERED: FLUOROURACIL IVPB SCH (12:30)
[2017-12-11 12:35] VITALS: BP 160/73; TEMP 98.6
[2017-12-11] MEDS ORDERED: diphenhydrAMINE 50 MG/ML VIAL ONE (14:22)
[2017-12-11] MEDS ORDERED: Dexamethasone 4 mg/ml Vial ONE (14:22)
[2017-12-11] MEDS ORDERED: Dexamethasone 10 MG/ML VIAL SLOW IVP SCH (14:30)
[2017-12-11] MEDS ORDERED: Lorazepam 1 MG TAB PO SCH (14:30)
== END 2017-12-11 16:48 | disposition home or self-care (01) ==
LOC: ONC/OP 12:03
PROVIDERS: ATTEND Internal Medicine Hematology & Oncology
DX: Z51.11 Encounter for antineoplastic chemotherapy (principal); C18.2 Malignant neoplasm of ascending colon; D63.0 Anemia in neoplastic disease; C79.9 Secondary malignant neoplasm of unspecified site; F41.9 Anxiety disorder, unspecified; I10 Essential (primary) hypertension; K22.70 Barrett's esophagus without dysplasia; M79.7 Fibromyalgia; K21.9 Gastro-esophageal reflux disease without esophagitis; M06.9 Rheumatoid arthritis, unspecified; E11.9 Type 2 diabetes mellitus without complications; E78.5 Hyperlipidemia, unspecified; I25.10 Atherosclerotic heart disease of native coronary artery without angina pectoris; E66.01 Morbid (severe) obesity due to excess calories; Z68.31 Body mass index [BMI] 31.0-31.9, adult; Z87.891 Personal history of nicotine dependence; Z79.84 Long term (current) use of oral hypoglycemic drugs; Z79.1 Long term (current) use of non-steroidal anti-inflammatories (NSAID); Z79.899 Other long term (current) drug therapy; Z88.8 Allergy status to other drugs, medicaments and biological substances; Z91.013 Allergy to seafood
CPT/HCPCS: 36415; 80053; 82248; 82378; 83615; 84100; 84550; 96367; 96375; 96413; 96416; 96417; 99212; G0463; J0640; J1100; J1200; J2405; J7050; J7070; J9035; J9190; J9263; S0028

== ENCOUNTER 2018-01-22 08:28 | Day surgery (SDC) | payer MEDICARE, MEDICAID ==
[2018-01-22] MEDS ORDERED: Sodium Chloride 0.9% 30 ML ONE (08:49)
[2018-01-22 08:55] VITALS: BP 166/86; TEMP 98
[2018-01-22] MEDS ORDERED: Dexamethasone 10 MG, Ondansetron 2MG/ML MDV 10 MG, Admixture Fee 1 EACH in Sodium Chlor... IVPB SCH (09:00)
[2018-01-22] MEDS ORDERED: WATER IVPB SCH ×2 (09:00)
[2018-01-22] MEDS ORDERED: FLUOROURACIL IVPB SCH (09:00)
[2018-01-22] MEDS ORDERED: OXALIPLATIN IVPB SCH (09:00)
[2018-01-22] MEDS ORDERED: diphenhydrAMINE 50 MG/ML VIAL IVP SCH (09:00)
[2018-01-22] MEDS ORDERED: Leucovorin Calcium 50 MG, Admixture Fee 1 EACH in Dextrose 5% in Water 50 ML IVPB SCH (09:00)
[2018-01-22] MEDS ORDERED: PALONOSETRON HCL 0.05 MG/ML 5 ML VIAL IVP SCH (09:00)
[2018-01-22] MEDS ORDERED: DEXTROSE 5% IVPB SCH ×2 (09:00)
[2018-01-22] MEDS ORDERED: Famotidine/PF 20 mg/2ml Vial SLOW IVP SCH (09:00)
[2018-01-22] MEDS ORDERED: BEVACIZUMAB IVPB SCH ×2 (09:15)
[2018-01-22] MEDS ORDERED: SODIUM CHLORIDE 0.9% IVPB SCH ×2 (09:15)
== END 2018-01-22 12:43 | disposition home or self-care (01) ==
LOC: ONC/OP 08:28
PROVIDERS: ATTEND Internal Medicine Hematology & Oncology
DX: Z51.11 Encounter for antineoplastic chemotherapy (principal); C18.2 Malignant neoplasm of ascending colon; D50.8 Other iron deficiency anemias; E66.01 Morbid (severe) obesity due to excess calories; I10 Essential (primary) hypertension; K22.70 Barrett's esophagus without dysplasia; F41.9 Anxiety disorder, unspecified; E78.5 Hyperlipidemia, unspecified; I25.2 Old myocardial infarction; E11.9 Type 2 diabetes mellitus without complications; I25.10 Atherosclerotic heart disease of native coronary artery without angina pectoris; M06.9 Rheumatoid arthritis, unspecified; Z87.891 Personal history of nicotine dependence; Z79.84 Long term (current) use of oral hypoglycemic drugs; Z79.899 Other long term (current) drug therapy; Z88.8 Allergy status to other drugs, medicaments and biological substances; Z91.013 Allergy to seafood; Z68.31 Body mass index [BMI] 31.0-31.9, adult
CPT/HCPCS: 96367; 96375; 96413; 96416; 96417; A4216; J0640; J1100; J1200; J2405; J2469; J7050; J7070; J9035; J9190; J9263; S0028

== ENCOUNTER 2018-02-05 09:10 | Day surgery (SDC) | payer MEDICARE, MEDICAID ==
[2018-02-05] MEDS ORDERED: DEXTROSE 5% IVPB SCH (09:30)
[2018-02-05] MEDS ORDERED: diphenhydrAMINE 25 MG, Admixture Fee 1 EACH in Sodium Chloride 0.9% 50 ML IVPB SCH (09:30)
[2018-02-05] MEDS ORDERED: Leucovorin Calcium 50 MG in Dextrose 5% in Water 50 ML IVPB SCH (09:30)
[2018-02-05] MEDS ORDERED: Famotidine/PF 20 MG, Admixture Fee 1 EACH in Sodium Chloride 0.9% 50 ML IVPB SCH (09:30)
[2018-02-05] MEDS ORDERED: FLUOROURACIL IVPB SCH (09:30)
[2018-02-05] MEDS ORDERED: WATER IVPB SCH (09:30)
[2018-02-05] MEDS ORDERED: Palonosetron HCl 0.25 MG, Admixture Fee 1 EACH in Sodium Chloride 0.9% 50 ML IVPB SCH (09:30)
[2018-02-05] MEDS ORDERED: Dexamethasone 10 MG, Ondansetron 2MG/ML MDV 10 MG, Admixture Fee 1 EACH in Sodium Chlor... IVPB SCH (09:30)
[2018-02-05] MEDS ORDERED: Sodium Chloride 0.9% 30 ML ONE (09:36)
[2018-02-05] MEDS ORDERED: SODIUM CHLORIDE 0.9% IVPB SCH ×2 (09:45)
[2018-02-05] MEDS ORDERED: Dexamethasone Sod Phosphate 10 MG, Ondansetron 2MG/ML MDV 10 MG, Admixture Fee 1 EACH i... IVPB SCH (09:45)
[2018-02-05] MEDS ORDERED: BEVACIZUMAB IVPB SCH ×2 (09:45)
[2018-02-05 09:49] VITALS: BP 154/82; TEMP 98
== END 2018-02-05 13:41 | disposition home or self-care (01) ==
LOC: ONC/OP 09:10
PROVIDERS: ATTEND Internal Medicine Hematology & Oncology
DX: Z51.11 Encounter for antineoplastic chemotherapy (principal); C18.2 Malignant neoplasm of ascending colon; D63.0 Anemia in neoplastic disease; F41.9 Anxiety disorder, unspecified; I10 Essential (primary) hypertension; K22.70 Barrett's esophagus without dysplasia; M79.7 Fibromyalgia; E11.9 Type 2 diabetes mellitus without complications; I25.10 Atherosclerotic heart disease of native coronary artery without angina pectoris; K21.9 Gastro-esophageal reflux disease without esophagitis; E66.01 Morbid (severe) obesity due to excess calories; Z68.31 Body mass index [BMI] 31.0-31.9, adult; Z87.891 Personal history of nicotine dependence; Z79.84 Long term (current) use of oral hypoglycemic drugs; Z79.1 Long term (current) use of non-steroidal anti-inflammatories (NSAID); Z79.899 Other long term (current) drug therapy; Z88.8 Allergy status to other drugs, medicaments and biological substances; Z91.013 Allergy to seafood
CPT/HCPCS: 36415; 82378; 96367; 96375; 96413; 96416; 96417; A4216; J0640; J1100; J1200; J2405; J2469; J7050; J7070; J9035; J9190; S0028

== ENCOUNTER → 2018-04-10 | Day surgery (SDC) | payer MEDICARE, MEDICAID ==
[2018-04-09 15:12] VITALS: BMI 30.9
[2018-04-10 10:18] LABS: #Eosinphils 0.2 thou/uL (0.0-0.7); #Lymphocytes 1.7 thou/uL (1.20-3.40); #Monocytes 0.5 thou/uL (0.11-0.59); #Neutrophils 4.3 thou/uL (1.40-6.50); %Basophils 0.7 % (0.0-1.0); %Eosinophils 2.3 % (0.0-10.0); %Lymphocytes 24.9 % (21.0-51.0); %Monocytes 7.7 % (0.0-10.0); %Neutrophils 64.5 % (42.0-75.0); Hemoglobin 10.4 g/dL (12.0-16.0); Mean Corpuscular HGB CONC 29.6 g/dL (32.0-36.0); Mean Corpuscular Hemoglobin 22.6 pg (27.0-31.0); Mean Corpuscular Volume 76.3 fL (78.0-98.0); Mean Platelet Volume 7.6 fL (7.4-10.4); Platelet Count 389 thou/uL (130-400); RBC Distribution Width 16.1 % (11.5-14.5); Red Blood Cell (RBC) Count 4.62 mill/uL (4.20-5.40); White Blood Cell (WBC) Count 6.7 thou/uL (4.8-10.8)
[2018-04-10 10:19] LABS: INR-International Normal Ratio 1.1; Prothrombin Time 13.9 SEC (12.0-14.7)
[2018-04-10 10:52] LABS: Hypochromia SLIGHT = 6-15 cells (100X) (0-5/hpf); MDiff Complete? YES; PLT Morphology Comment Appears Adequate; Polychromasia SLIGHT = 2-3 cells (100X) (0-2/hpf)
--- NOTE | 2018-04-10 12:40 | ULT ---
LIMITED ABDOMEN ULTRASOUND: COMPARISON: 01/15/2018 CORRELATION: CT abdomen and pelvis from 12/24/2017. FINDINGS: Initial static images were reviewed. After reviewing static images, real-time imaging was performed in the presence of the radiologist. Survey of the entire abdomen shows a very small amount of fluid. There does appear to be some thicke jessie of bowel loops with possible thickening of the mesentery. No drainable fluid collection is appr eciated. IMPRESSION: No drainable fluid collection. The results of the study were discussed with Dr. Brito on 04/10/2018 at 10:54 a.m. CODE CR POS: [facility]
== END ==
LOC: ULT 09:59
PROVIDERS: ATTEND Internal Medicine Hematology & Oncology
DX: R18.8 Other ascites (principal); C18.2 Malignant neoplasm of ascending colon; F41.9 Anxiety disorder, unspecified; I10 Essential (primary) hypertension; M06.9 Rheumatoid arthritis, unspecified; K21.9 Gastro-esophageal reflux disease without esophagitis; E11.9 Type 2 diabetes mellitus without complications; E78.5 Hyperlipidemia, unspecified; I25.10 Atherosclerotic heart disease of native coronary artery without angina pectoris; E66.01 Morbid (severe) obesity due to excess calories; Z68.31 Body mass index [BMI] 31.0-31.9, adult; Z87.891 Personal history of nicotine dependence; Z79.1 Long term (current) use of non-steroidal anti-inflammatories (NSAID); Z79.899 Other long term (current) drug therapy; Z88.4 Allergy status to anesthetic agent; Z88.8 Allergy status to other drugs, medicaments and biological substances; Z91.013 Allergy to seafood; Z95.5 Presence of coronary angioplasty implant and graft
CPT/HCPCS: 36415; 76705; 80053; 82248; 82378; 83615; 84100; 84550; 85025; 85610; 85730